=== PATIENT | female | born 1960 | race Caucasian/White ===

== ENCOUNTER → 2016-03-31 | Outpatient (CLI) | payer BC ==
[~2016-03-31] MED LIST: METO25TA3 PO; TAMO20TA47 PO
== END | disposition home or self-care (01) ==
LOC: C.LABPVFM 10:09
PROVIDERS: ATTEND Nurse Practitioner
DX: E55.9 Vitamin D deficiency, unspecified (principal)

== ENCOUNTER → 2016-12-01 | Outpatient (CLI) | payer BC ==
[2016-12-01 12:40] LABS: BLOOD UREA NITROGEN 19 mg/dl (7-18); CARBON DIOXIDE 26 mmol/L (21-32); CHLORIDE 109 mmol/L (98-107); GLUCOSE 93 mg/dl (70-99); POTASSIUM 4.5 mmol/L (3.5-5.1); SODIUM 142 mmol/L (136-145)
[2016-12-01 12:44] LABS: CHOLESTEROL 191 mg/dl (0-200); HDL CHOLESTEROL 64 mg/dl; LDL CHOLESTEROL CALCULATED 81 mg/dl; TRIGLYCERIDES 229 mg/dl (0-150); VERY LOW DENSITY LIPOPROT CALC 46 mg/dl
== END | disposition home or self-care (01) ==
LOC: C.LABPVFM 08:23
PROVIDERS: ATTEND Nurse Practitioner
DX: I10 Essential (primary) hypertension (principal); E78.00 Pure hypercholesterolemia, unspecified

== ENCOUNTER → 2017-01-04 | Outpatient (CLI) | payer BC ==
[~2017-01-04] MED LIST changes: -TAMO20TA47 PO; +TAMO20TA9 PO
== END | disposition home or self-care (01) ==
LOC: C.PAPS 14:00
PROVIDERS: ATTEND Obstetrics & Gynecology
DX: Z01.419 Encounter for gynecological examination (general) (routine) without abnormal findings (principal)

== ENCOUNTER → 2017-01-04 | Outpatient (CLI) | payer BC ==
[~2017-01-04] MED LIST changes: +TAMO20TA47 PO; -TAMO20TA9 PO
[2017-01-04 13:44] LABS: URINE APPEARANCE CLEAR (CLEAR); URINE BILIRUBIN NEG (NEG); URINE COLOR YELLOW; URINE EPITHELIAL CELL AUTO 20-30 /lpf (0-5); URINE NITRITE NEG (NEG); URINE PH 5.5 (4.5-7.5); URINE SPECIFIC GRAVITY 1.026 (1.000-1.030); UROBILINOGEN NEG (NEG); ZZUR CULT IF INDIC CLEAN CATCH NO
[2017-01-04 13:51] LABS: MANUAL MICROSCOPIC REQUIRED? NO; REVIEW REQ? YES
== END | disposition home or self-care (01) ==
LOC: C.LAB1850 10:46
PROVIDERS: ATTEND Obstetrics & Gynecology
DX: N95.0 Postmenopausal bleeding (principal); N92.4 Excessive bleeding in the premenopausal period; R32 Unspecified urinary incontinence

== ENCOUNTER → 2017-02-08 | Outpatient (CLI) | payer BC ==
[~2017-02-08] MED LIST changes: +OPTIRAY 320 IV PRN; -TAMO20TA47 PO; +TAMO20TA9 PO
--- NOTE | 2017-02-08 10:04 | DIAGNOSTIC IMAGING REPORT ---
ABD/PELVIS COMBO CT DOSE: 1950.24 mGycm HISTORY: Hematuria R31.29 [facility]uria[id number] VALID 01/24/17 - 03/25/17 E X0 TECHNIQUE: Multiaxial CT images of the abdomen and pelvis were performed pre and post intravenous contrast enhancement. A dose lowering technique was utilized adhering to the principles of ALARA. COMPARISON STUDY: None. FINDINGS: The lung bases are clear. No focal basilar infiltrative or nodular process. Bilateral breast augmentation mammoplasty's. Mild fatty infiltration of the liver. No significant space-occupying hepatic lesion. Gallbladder is negative for distention. Several renal microcysts measuring no more 1 cm. No evidence for renal hydronephrosis. Mild renal sinus lipomatosis. Bowel pattern is considered nonobstructive throughout. Mesentery is unremarkable. There is no significant [place] pathology. Uterus is bulky and is anteflexed in configuration. Maximum cross-sectional dimensions of the uterus are 8.4 x 6.6 cm. There is abnormal thickening of the endometrium at 5.6 x 4.6 cm. Several small cervical the both and cysts are present. Margin of the uterus appears to be slightly lobulated but generally is smooth. There is no evidence for ovarian enlargement. Bladder opacifies appropriately. IMPRESSION: 1. Enlarged somewhat bulky uterus raising the distinct possibility of uterine fibroids. 2. Abnormal thickening of the endometrium at 5.6 x 4.6 cm. 3. Further REMOTELY [employer] evaluation is indicated to exclude an endometrial neoplastic process. 4. Several very small renal cysts bilaterally. 6. No evidence for obstructive change or true filling defect of the urinary tracts. 7. Mild fatty infiltration of liver. 8. No significant [place] pathology The above report was generated using voice recognition software. It may contain grammatical, syntax or spelling errors. Electronically signed by: Ovidio Neal M.D. 02/08/2017 10:02 AM Dictated Date/Time: 02/08/2017 9:45 AM
== END | disposition home or self-care (01) ==
LOC: C.CTS 09:05
PROVIDERS: ATTEND Nurse Practitioner Adult Health
DX: R31.29 Other microscopic hematuria (principal); N85.2 Hypertrophy of uterus; N28.1 Cyst of kidney, acquired

== ENCOUNTER → 2017-03-09 | Outpatient (CLI) | payer BC, OTHER ==
[~2017-03-09] VITALS: Ht 165.1 cm; Wt 83.7 kg
[~2017-03-09] MED LIST changes: +ATOR-22 PO; +FENTANYL CITRATE INJ 50 MCG/1 ML 2 ML VIAL ONE; +IBUP-1050 PO; +LIDOCAINE HCL 2% 2 ML VIAL (20MG/ML) ONE; -OPTIRAY 320 IV PRN; +PROPOFOL IV EMULSION 10 MG/ML 20 ML VIAL IV ONE
[2017-03-09 15:00] VITALS: Ht 165.1 cm; Wt 83.7 kg
[2017-03-09 15:14] LABS: BASO % 0.2 %; BASO ABS # 0.02 K/uL (0-0.2); EOS % 2.7 %; HEMATOCRIT 42.3 % (37-47); HEMOGLOBIN 14.2 g/dL (12.0-16.0); IG# 0.03 K/uL (0.00-0.02); LYMPH % 19.9 %; LYMPH ABS # 2.21 K/uL (1.2-3.4); MEAN CELL VOLUME 90.6 fL (80-100); MEAN CORPUSCULAR HEMOGLOBIN 30.4 pg (25-34); MEAN CORPUSCULAR HGB CONC 33.6 g/dl (32-36); MEAN PLATELET VOLUME 10.1 fL (7.4-10.4); MONO % 6.9 %; MONO ABS # 0.77 K/uL (0.11-0.59); PLATELET COUNT 254 K/uL (130-400); RED CELL DISTRIBUTION WIDTH SD 42.8 fL (36.4-46.3); WHITE BLOOD COUNT 11.13 K/uL (4.8-10.8)
--- NOTE | 2017-03-09 15:33 | PAT Medication Instructions ---
Service Date Mar 09, 2017. Current Home Medication List Atorvastatin (Lipitor), 20 MG PO QAM Ibuprofen (Advil), 400 MG PO PRN Metoprolol Succ (Toprol Xl) (Toprol-Xl), 12.5 MG PO QAM Tamoxifen (Nolvadex), 20 MG PO QAM Medication Instructions For Your Scheduled Surgery -Contact your surgeon for instructions: Ibuprofen (Advil), 400 MG PO PRN - Take the following medications the morning of surgery with a sip of water: Metoprolol Succ (Toprol Xl) (Toprol-Xl), 12.5 MG PO QAM Tamoxifen (Nolvadex), 20 MG PO QAM Atorvastatin (Lipitor), 20 MG PO QAM If you have any questions please call us at [phone] or [phone] or [phone]
[2017-03-09 16:35] LABS: CREATININE 0.88 mg/dl (0.60-1.20)
== END | disposition home or self-care (01) ==
LOC: C.LAB 08:00 → EDSTATUS 03-27 07:30
PROVIDERS: ATTEND Obstetrics & Gynecology
DX: Z01.818 Encounter for other preprocedural examination (principal)

== ENCOUNTER → 2017-07-27 | Outpatient (CLI) | payer OTHER ==
[~2017-07-27] MED LIST changes: -FENTANYL CITRATE INJ 50 MCG/1 ML 2 ML VIAL ONE; -LIDOCAINE HCL 2% 2 ML VIAL (20MG/ML) ONE; -PROPOFOL IV EMULSION 10 MG/ML 20 ML VIAL IV ONE
== END | disposition home or self-care (01) ==
LOC: C.LABPVFM 10:25
PROVIDERS: ATTEND Nurse Practitioner
DX: R53.83 Other fatigue (principal); R63.5 Abnormal weight gain